=== PATIENT | female | born 1985 | race Native Hawaiian/Other Pacific Islander ===

== ENCOUNTER 2017-04-15 02:17 | Emergency (ER) | payer OTHER ==
[~2017-04-15] VITALS: Ht 152.4 cm; Wt 54.0 kg
[~2017-04-15 02:17] MED LIST: BCPILLS PO; HYDRTAB53 PO
[2017-04-15 02:19] VITALS: TEMP 36.5; Ht 152.4 cm; Wt 54.0 kg
[2017-04-15 03:27] LABS: CALCIUM 8.3 mg/dl (8.5-10.1); CREATININE 0.63 mg/dl (0.60-1.20); POTASSIUM 3.1 mmol/L (3.5-5.1)
[2017-04-15] MEDS ORDERED: LIDOCAINE/EPINEPH/TETRACAINE 1 EA SYR EXT STA (03:42)
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
[2017-04-15 05:35] VITALS: BP 10/69; PULSE 98; O2SAT 97
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
== END 2017-04-15 05:35 | disposition home or self-care (01) ==
LOC: EDBD 02:17 → C.EDB 02:19
DX: S01.81XA Laceration without foreign body of other part of head, initial encounter (principal); W22.8XXA Striking against or struck by other objects, initial encounter; F10.929 Alcohol use, unspecified with intoxication, unspecified; Y90.7 Blood alcohol level of 200-239 mg/100 ml; E87.6 Hypokalemia

== ENCOUNTER 2017-04-19 15:53 | Emergency (ER) | payer OTHER ==
[~2017-04-19] VITALS: Ht 152.4 cm; Wt 53.5 kg
[2017-04-19 15:56] VITALS: Ht 152.4 cm; Wt 53.5 kg
--- NOTE | 2017-04-19 16:08 | EMERGENCY ROOM VISIT NOTE ---
ED Visit Note First contact with patient: 15:59 CHIEF COMPLAINT: Suture removal HPI: This 31-year-old female patient returns to the ED today for removal of sutures that were placed for days ago into her face. There has been no swelling , redness, or drainage from the wound. The patient feels like the laceration is healing well. REVIEW OF SYSTEMS: 6 system review was performed and was negative unless stated otherwise in history of present illness. PMH: The patient is healthy; there is no significant medical or surgical history. SOCIAL HISTORY: Patient lives with her . The patient admits to alcohol use. PHYSICAL EXAM: Vital Signs: Were reviewed reviewed Nurse's notes. GENERAL: 31- year-old female appears in no acute distress. MENTAL STATUS: Alert and oriented 3. There are 2 sutured wound above the left eye with no signs of infection. There is no erythema, swelling, or tenderness. EMERGENCY DEPARTMENT COURSE: The 2 sutures were removed without any difficulty and there was no separation of the wound edges. DIAGNOSIS: Healing facial laceration and suture removal DISCHARGE INSTRUCTIONS AND TREATMENT: Wash any remaining crusts off of the wound today and resume your normal activities. Current/Historical Medications No Active Prescriptions or Reported Meds Allergies Coded Allergies: No Known Allergies (Unverified , 04/15/17) Vital Signs Date Time Temp Pulse Resp B/P (MAP) Pulse Ox O2 Delivery O2 Flow Rate FiO2 04/19/17 15:56 36.7 76 17 119/70 96 Room Air Departure Information Prescriptions No Active Prescriptions or Reported Meds Referrals No Doctor, Assigned (PCP) Patient Instructions [facility]
[2017-04-19 16:16] VITALS: BP 119/70; PULSE 76; TEMP 36.7; O2SAT 96
== END 2017-04-19 16:16 | disposition home or self-care (01) ==
LOC: C.EDB 15:54 → C.EDD 16:16
DX: S01.81XD Laceration without foreign body of other part of head, subsequent encounter (principal); W22.8XXD Striking against or struck by other objects, subsequent encounter; Z48.02 Encounter for removal of sutures

== ENCOUNTER 2021-11-02 07:57 | Inpatient (IN) ==
[2021-11-02] MEDS: LACTATED RINGER'S 1,000 ML IV PRN ×3 (09:00→17:41)
[2021-11-02] MEDS ORDERED: OXYTOCIN 30 UNITS/500 ML BAG IV PRN ×2 (09:05→23:11)
[2021-11-02] MEDS ORDERED: LIDOCAINE 1% LOCAL 20 ML VIAL INFIL PRN (09:05)
[2021-11-02] MEDS ORDERED: PENICILLIN G POTASSIUM 6 MU in DEXTROSE 5% 250 ML IV ONE (09:30)
[2021-11-02 09:57] LABS: Hematocrit (blood only) 39.6 % (34.1-44.9); Hemoglobin 13.9 g/dl (12.0-16.0); Mean Corpuscular Hemoglobin 32.9 pg (25.0-34.0); Mean Corpuscular Hgb Conc 35.1 g/dL (32.0-36.0); Mean Corpuscular Volume 93.6 fL (80.0-100.0); Mean Platelet Volume 11.2 fL (9.4-12.3); Platelet Count 201 K/uL (130-400); RDW Coefficient of Variation 12.4 % (11.5-14.5); RDW Standard Deviation 42.7 fL (36.4-46.3); Red Blood Count 4.23 M/uL (3.93-5.22); White Blood Count 8.52 K/ul (4.8-10.8)
--- NOTE | 2021-11-02 10:03 | History & Physical Report ---
Date of Service November 02, 2021 Assessment & Plan Admission and Anticipated Discharge Date Admission Date: November 02, 2021 History of Present Illness Chief Complaint: rupture of membranes Primary Care Provider: NO PCP 36 F P1001 at 38.4 with SROM blood tinged fluid at around 0730 this AM. GBS is positive. Allergies Allergy/AdvReac Type Severity Reaction Status Date / Time No Known Allergies Allergy Unverified 04/15/17 02:31 Patient History Surgical History Hx of cholecystectomy Social History Smoking Status: Never smoker Second Hand Exposure: No; Do You Dip or Chew Tobacco: No; Hx Alcohol Use: No Hx Substance Use: No Preferred Language: [place] Communication Ability: Effective Client Experience Consultant Required: No Beliefs That Will Affect Care: None marital status: Current Living Situation: Spouse Other Information That Helps Us Care for You: No Feels Safe at Home: Yes Safety Concerns: Feels Safe At This Time Assistive Devices: Glasses OB History x1 at 35.4 at [facility] [place] GDM diet controlled [employer] History small anterior uterine fibroid 2.0 x 1.7 x 2.0 cm. Review of Systems All systems reviewed & are unremarkable except as noted in HPI & below Physical Exam Constitutional: WD/WN, vitals as above Respiratory: normal respiratory effort, lungs clear to auscultation Cardiovascular: RRR, no murmur, no edema Musculoskeletal: Extremities: extremities normal to inspection Skin: no rashes, warm and dry Neurologic: patellar DTR's 2+ bilat, sensation intact Psychiatric: A+Ox3, euthymic affect Genitourinary: normal external appearance OB Exam Abdomen: + fundal height and + vertex Manual OB Exam: + cervical dilation fingertip, + cervical effacement 50%, + station high and + amniotic fluid clear and bloody OB Exam Monitor Tracing: + external FHT monitor used, + external uterine monitor used, + category I and + normal FHT variability EFW 8 lbs Results & Data ([facility]) Vital Signs (Past 12 Hours) Vital Signs Temp Pulse Resp BP 11/02/21 08:56 78 123/83 11/02/21 08:52 36.5 C 78 18 123/83 Monitoring External Monitor Cat 1
[2021-11-02] MEDS: miSOPROStoL 50 MCG TAB PO SCH ×3 (10:34→18:35)
[2021-11-02] MEDS: PENICILLIN G POTASSIUM 3 MU in DEXTROSE 5% 100 ML IV PRN ×3 (14:14→22:25)
[2021-11-02] MEDS ORDERED: SODIUM CHLORIDE 0.9% INJ 10 ML VIAL ONE (15:23)
[2021-11-02] MEDS ORDERED: fentaNYL citrate 100 MCG/2 ML VIAL ONE (15:23)
[2021-11-02] MEDS ORDERED: BUPIVACAINE 0.25% 30 ML VIAL ONE (15:23)
[2021-11-02] MEDS ORDERED: ePHEDrine sulfate 50 MG/ML AMP ONE (15:23)
[2021-11-02] MEDS ORDERED: LIDOCAINE 2%/EPINEPHRINE 1:200,000 20 ML SDV ONE (15:23)
[2021-11-02] MEDS ORDERED: fentaNYL 2MCG/ML ROPIVACAINE 1.25MG/ML 100 ML BAG EPI ONE (15:24)
[2021-11-02] MEDS ORDERED: diphenhydrAMINE 50 MG/ML VIAL IV PRN (15:32)
[2021-11-02] MEDS ORDERED: NALOXONE HCL 0.4 MG/1 ML VIAL/CARP IV PRN (15:32)
[2021-11-02] MEDS ORDERED: ePHEDrine sulfate 50 MG/ML AMP IV PRN (15:32)
[2021-11-02] MEDS ORDERED: ONDANSETRON INJ 2 MG/ML 2 ML VIAL IV PRN (15:32)
[2021-11-02] MEDS ORDERED: NALOXONE HCL 1 MG in SODIUM CHLORIDE 0.9% 1000ML 1,000 ML IV PRN (15:32)
[2021-11-02] MEDS ORDERED: NALBUPHINE HCL INJ 10 MG/ML AMP IV PRN (15:32)
[2021-11-02] MEDS ORDERED: fentaNYL 2MCG/ML ROPIVACAINE 1.25MG/ML 100 ML BAG EPI PRN (15:32)
--- NOTE | 2021-11-02 15:34 | Anesthesiology Consultation ---
Date of Service November 02, 2021 Assessment & Plan (1) Encounter for pre-operative examination: Chart Review Chart Review: Patient NOT seen in Pre Admission Testing and Acceptable Risk for Labor Epidural Consults Requested none History Height/Weight Height: 5 ft 1 in Weight: 70.307 kg Allergies Allergy/AdvReac Type Severity Reaction Status Date / Time No Known Allergies Allergy Unverified 04/15/17 02:31 Medications Active Medications Generic Name Dose Route Start Last Admin Trade Name Freq PRN Reason Stop Dose Admin Lactated Ringer's 1,000 mls @ 125 mls/hr 11/02/21 09:05 11/02/21 12:38 Lr IV 11/04/21 09:04 125 mls/hr .Q8H PRN Administration L&D Protocol Protocol Penicillin G Potassium 3 mu/ 106 mls @ 100 mls/hr 11/02/21 12:05 11/02/21 14:14 Dextrose IV 11/12/21 12:04 100 mls/hr Q4H PRN Administration GBS(+) Until Delivery Misoprostol 50 mcg 11/02/21 09:55 11/02/21 10:34 Misoprostol 50 Mcg Tab PO 12/02/21 09:54 50 mcg Q4H BEST Administration Exercise / Class Metabolic Activity II 4-5 Yardwork/Stairs/Walk up hill Past Surgical History Surgical History Hx of cholecystectomy Past Anesthesia History No Hx of Anesthesia Complications and No Family Hx of Anesthesia Complications History of PONV No Hx of PONV and No Hx of Motion Sickness Social History Smoking Status: Never smoker Do You Dip or Chew Tobacco: No Hx Alcohol Use: No Hx Substance Use: No Physical Exam Vital Signs Last Vital Signs Temp 36.5 C 11/02/21 15:31 Pulse 73 11/02/21 15:53 Resp 18 11/02/21 15:31 BP 175/90 H 11/02/21 15:53 Pulse Ox 98 11/02/21 15:53 Testing Laboratory Results 11/02/21 09:18
--- NOTE | 2021-11-02 16:30 | Labor Progress Brief Note ---
Date of Service November 02, 2021 Assessment & Plan Admission and Anticipated Discharge Date Admission Date: November 02, 2021 Physical Exam Genitourinary: Manual OB Exam: + cervical dilation 6 cm and 7 cm, + cervical effacement 90% and + station 0 OB Exam Monitor Tracing: + external FHT monitor used, + external uterine monitor used, + category II and + normal FHT variability Results & Data ([facility]) Vital Signs (Past 12 Hours) Vital Signs Temp Pulse Resp BP Pulse Ox 11/02/21 16:27 75 116/67 11/02/21 16:25 79 94/55 L 11/02/21 16:23 70 95 11/02/21 16:18 68 96 11/02/21 16:15 80 101/66 11/02/21 16:13 91 H 97 11/02/21 16:08 89 97 11/02/21 16:07 98 H 108/78 11/02/21 16:04 102 H 103/70 11/02/21 16:03 87 97 11/02/21 15:58 85 97 11/02/21 15:57 82 119/78 11/02/21 15:53 98 11/02/21 15:53 73 11/02/21 15:53 74 175/90 H 11/02/21 15:48 89 97 11/02/21 15:31 18 11/02/21 15:31 36.5 C 18 11/02/21 15:43 93 H 99 11/02/21 15:38 79 99 11/02/21 15:33 86 98 11/02/21 15:32 82 124/86 11/02/21 13:45 59 L 11/02/21 13:45 124/71 11/02/21 13:45 36.5 C 59 L 20 124/71 11/02/21 11:33 20 11/02/21 11:33 36.7 C 68 20 138/84 11/02/21 11:34 68 138/84 11/02/21 08:56 78 123/83 11/02/21 08:52 36.5 C 78 18 123/83
--- NOTE | 2021-11-02 19:38 | Labor Progress Brief Note ---
Date of Service November 02, 2021 Assessment & Plan Admission and Anticipated Discharge Date Admission Date: November 02, 2021 Physical Exam Genitourinary: Manual OB Exam: + cervical dilation 9 cm and 10 cm, + cervical effacement 100% and + station 0 small anterior rim Results & Data ([facility]) Vital Signs (Past 12 Hours) Vital Signs Temp Pulse Resp BP Pulse Ox 11/02/21 15:10 36.5 C 18 11/02/21 19:33 90 130/77 97 11/02/21 19:28 92 H 98 11/02/21 19:23 80 97 11/02/21 19:18 79 126/77 97 11/02/21 19:13 79 98 11/02/21 19:09 16 11/02/21 19:09 36.5 C 16 11/02/21 19:08 89 97 11/02/21 19:03 98 11/02/21 19:03 98 H 11/02/21 19:03 93 H 124/87 11/02/21 18:58 79 97 11/02/21 18:53 101 H 99 11/02/21 18:48 95 H 97 11/02/21 18:49 86 129/81 11/02/21 18:43 79 98 11/02/21 18:35 18 11/02/21 18:35 36.9 C 18 11/02/21 18:38 83 98 11/02/21 18:33 72 96 11/02/21 18:34 77 147/77 H 11/02/21 18:28 75 96 11/02/21 18:23 80 98 11/02/21 18:18 77 98 11/02/21 18:17 83 138/85 11/02/21 18:13 74 98 11/02/21 18:08 81 98 11/02/21 18:03 72 95 11/02/21 18:04 70 144/82 H 11/02/21 17:58 70 98 11/02/21 17:53 69 97 11/02/21 17:51 71 94 11/02/21 17:48 74 117/72 97 11/02/21 17:40 16 11/02/21 17:40 36.8 C 16 11/02/21 17:43 72 97 11/02/21 17:38 80 97 11/02/21 17:33 80 97 11/02/21 17:32 109 H 143/89 H 11/02/21 17:31 107 H 92 11/02/21 17:28 71 96 11/02/21 17:25 69 94 11/02/21 17:23 72 97 11/02/21 17:18 97 11/02/21 17:18 62 11/02/21 17:18 68 136/81 11/02/21 17:14 69 93 11/02/21 17:13 65 96 11/02/21 17:08 67 94 11/02/21 17:03 98 11/02/21 17:03 65 11/02/21 17:03 61 136/78 11/02/21 17:01 69 94 11/02/21 16:58 64 97 11/02/21 16:56 70 93 11/02/21 16:30 16 11/02/21 16:30 16 11/02/21 16:50 18 11/02/21 16:50 36.9 C 18 11/02/21 16:53 68 97 11/02/21 16:48 67 97 11/02/21 16:47 68 106/81 11/02/21 16:45 72 95/77 L 11/02/21 16:43 70 98 11/02/21 16:42 65 97/72 L 11/02/21 16:39 74 103/64 11/02/21 16:38 72 98 11/02/21 16:37 69 109/68 11/02/21 16:35 155 H 115/72 11/02/21 16:33 63 109/67 99 11/02/21 16:31 74 112/63 11/02/21 16:28 70 99 11/02/21 16:27 75 116/67 11/02/21 16:25 79 94/55 L 11/02/21 16:23 70 95 11/02/21 16:18 68 96 11/02/21 16:15 80 101/66 11/02/21 16:13 91 H 97 11/02/21 16:08 89 97 11/02/21 16:07 98 H 108/78 11/02/21 16:04 102 H 103/70 11/02/21 16:03 87 97 11/02/21 15:58 85 97 11/02/21 15:57 82 119/78 11/02/21 15:53 98 11/02/21 15:53 73 11/02/21 15:53 74 175/90 H 11/02/21 15:48 89 97 11/02/21 15:31 18 11/02/21 15:31 36.5 C 18 11/02/21 15:43 93 H 99 11/02/21 15:38 79 99 11/02/21 15:33 86 98 11/02/21 15:32 82 124/86 11/02/21 13:45 59 L 11/02/21 13:45 124/71 11/02/21 13:45 36.5 C 59 L 20 124/71 11/02/21 11:33 20 11/02/21 11:33 36.7 C 68 20 138/84 11/02/21 11:34 68 138/84 11/02/21 08:56 78 123/83 11/02/21 08:52 36.5 C 78 18 123/83
[2021-11-02] MEDS ORDERED: ERYTHROMYCIN OP OINT 1 GM PKT ONE (20:06)
[2021-11-02] MEDS ORDERED: OXYTOCIN 30 UNITS/500 ML BAG IV SCH (22:30)
--- NOTE | 2021-11-02 23:04 | Delivery Summary ---
Vaginal Delivery Summary Date of Service November 02, 2021 Vaginal Delivery Summary Delivery Note live male JULIA with delayed cord clamping and Apgars 8/9 weight pending. Cord blood obtained followed by spontaneous delivery of intact placenta. No tears. EBL 200 ml. Final sponge and instrument count are correct. Mom and baby stable.
[2021-11-02] MEDS ORDERED: HYDROCORTISONE ACETATE 25 MG SUPP PR PRN (23:11)
[2021-11-02] MEDS ORDERED: DIPHTHERIA/TETANUS/PERTUSSIS 0.5 ML SYR/VIAL IM ONE (23:11)
[2021-11-02] MEDS ORDERED: bisacodyL 10 MG SUPP PR PRN (23:11)
[2021-11-02] MEDS ORDERED: BENZOCAINE 20% AER SPR 82.5 GM CAN EXT PRN (23:11)
[2021-11-02] MEDS ORDERED: ACETAMINOPHEN 325 MG TAB PO PRN (23:11)
[2021-11-03] MEDS: IBUPROFEN 600 MG TAB PO PRN ×2 (03:23→19:57)
[2021-11-03 08:12] LABS: Hemoglobin 12.2 g/dl (12.0-16.0); Mean Corpuscular Hemoglobin 32.4 pg (25.0-34.0); Mean Corpuscular Hgb Conc 34.9 g/dL (32.0-36.0); Mean Corpuscular Volume 93.1 fL (80.0-100.0); Mean Platelet Volume 10.9 fL (9.4-12.3); Platelet Count 169 K/uL (130-400); RDW Coefficient of Variation 12.4 % (11.5-14.5); RDW Standard Deviation 42.2 fL (36.4-46.3); Red Blood Count 3.76 M/uL (3.93-5.22); White Blood Count 14.04 K/ul (4.8-10.8)
--- NOTE | 2021-11-03 09:21 | Obstetrical Progress Note ---
Date of Service November 03, 2021 Assessment & Plan Admission and Anticipated Discharge Date Admission Date: November 02, 2021 Subjective Patient is seen and examined. She feels well, no complaints. Ambulating without dizziness Voiding without difficulty Tolerating regular diet with out N&V Bleeding is minimal No fever/ chills/ CP/ SOB/ N&V/ Leg pain Breast feeding without problems Vital Signs Temp Pulse Pulse Resp BP BP Pulse Ox 11/03/21 07:10 36.6 C 70 18 125/82 11/03/21 03:35 36.5 C 69 18 142/88 H 11/03/21 01:05 36.7 C 76 18 150/86 H 11/02/21 23:02 20 11/03/21 00:51 36.7 C 76 18 150/88 H 11/03/21 00:20 16 11/02/21 23:48 16 11/02/21 23:33 18 11/02/21 23:17 18 11/02/21 22:51 20 11/03/21 00:32 75 133/75 11/03/21 00:20 71 135/73 11/03/21 00:17 77 149/74 H 11/03/21 00:02 63 144/67 H 11/02/21 23:48 72 142/86 H 11/02/21 23:33 85 146/85 H 11/02/21 23:29 72 98 11/02/21 23:24 81 96 11/02/21 23:19 89 98 11/02/21 23:17 89 118/70 11/02/21 23:14 95 H 97 11/02/21 23:09 93 H 98 11/02/21 23:04 92 H 99 11/02/21 23:02 90 119/75 11/02/21 22:59 94 H 98 11/02/21 22:54 97 H 97 11/02/21 22:51 98 H 117/79 11/02/21 22:49 95 H 97 11/02/21 22:44 92 H 95 11/02/21 22:45 89 94 11/02/21 22:39 91 H 95 11/02/21 22:36 92 H 94 11/02/21 22:34 92 H 97 11/02/21 22:29 85 96 11/02/21 22:27 95 H 91 11/02/21 22:24 101 H 96 11/02/21 22:19 90 96 11/02/21 22:18 100 H 131/86 11/02/21 22:14 89 96 11/02/21 22:13 98 H 94 11/02/21 22:09 96 H 98 11/02/21 22:07 92 H 94 11/02/21 22:04 103 H 96 11/02/21 21:59 91 H 97 11/02/21 21:58 100 H 94 11/02/21 21:54 117 H 97 11/02/21 21:52 98 H 94 11/02/21 21:49 95 11/02/21 21:49 90 11/02/21 21:49 85 132/69 11/02/21 21:44 99 H 95 11/02/21 21:39 103 H 97 11/02/21 21:35 36.6 C 11/02/21 21:34 95 11/02/21 21:34 93 H 11/02/21 21:34 118 H 93 11/02/21 21:33 100 H 154/63 H 11/02/21 21:29 115 H 97 11/02/21 21:24 99 H 95 O2 Del Method 11/03/21 07:10 Room Air 11/03/21 03:35 11/03/21 01:05 11/02/21 23:02 11/03/21 00:51 11/03/21 00:20 11/02/21 23:48 11/02/21 23:33 11/02/21 23:17 11/02/21 22:51 11/03/21 00:32 11/03/21 00:20 11/03/21 00:17 11/03/21 00:02 11/02/21 23:48 11/02/21 23:33 11/02/21 23:29 11/02/21 23:24 11/02/21 23:19 11/02/21 23:17 11/02/21 23:14 11/02/21 23:09 11/02/21 23:04 11/02/21 23:02 11/02/21 22:59 11/02/21 22:54 11/02/21 22:51 11/02/21 22:49 11/02/21 22:44 11/02/21 22:45 11/02/21 22:39 11/02/21 22:36 11/02/21 22:34 11/02/21 22:29 11/02/21 22:27 11/02/21 22:24 11/02/21 22:19 11/02/21 22:18 11/02/21 22:14 11/02/21 22:13 11/02/21 22:09 11/02/21 22:07 11/02/21 22:04 11/02/21 21:59 11/02/21 21:58 11/02/21 21:54 11/02/21 21:52 11/02/21 21:49 11/02/21 21:49 11/02/21 21:49 11/02/21 21:44 11/02/21 21:39 11/02/21 21:35 11/02/21 21:34 11/02/21 21:34 11/02/21 21:34 11/02/21 21:33 11/02/21 21:29 11/02/21 21:24 Lab Results 11/02/21 11/02/21 11/02/21 Range/Units 09:18 12:32 16:32 WBC 8.52 (4.8-10.8) K/ul RBC 4.23 (3.93-5.22) M/uL Hgb 13.9 (12.0-16.0) g/dl Hct 39.6 (34.1-44.9) % MCV 93.6 (80.0-100.0) fL MCH 32.9 (25.0-34.0) pg MCHC 35.1 (32.0-36.0) g/dL RDW Std Deviation 42.7 (36.4-46.3) fL RDW Coeff of Kaya 12.4 (11.5-14.5) % Plt Count 201 (130-400) K/uL MPV 11.2 (9.4-12.3) fL POC Glucose 106 H (70-99) mg/dl SARS-CoV-2, RNA, NAAT NEGATIVE (NEGATIVE) 11/03/21 Range/Units 08:00 WBC 14.04 H (4.8-10.8) K/ul RBC 3.76 L (3.93-5.22) M/uL Hgb 12.2 (12.0-16.0) g/dl Hct 35.0 (34.1-44.9) % MCV 93.1 (80.0-100.0) fL MCH 32.4 (25.0-34.0) pg MCHC 34.9 (32.0-36.0) g/dL RDW Std Deviation 42.2 (36.4-46.3) fL RDW Coeff of Kaya 12.4 (11.5-14.5) % Plt Count 169 (130-400) K/uL MPV 10.9 (9.4-12.3) fL POC Glucose (70-99) mg/dl SARS-CoV-2, RNA, NAAT (NEGATIVE) PE: General: Alert, orientedx3, NAD Abd: soft, NT, fundus firm, below Umbilicus Perineum intact, Lochia rubra minimal Ext; NT, no edema AP: 36 yo s/p , ppd# 1 VSS Afebrile doing well Continue routine care All questions were answered D/C home tomorrow Results & Data ([facility]) Vital Signs (Past 12 Hours) Vital Signs Temp Pulse Pulse Resp BP BP Pulse Ox 11/03/21 07:10 36.6 C 70 18 125/82 11/03/21 03:35 36.5 C 69 18 142/88 H 11/03/21 01:05 36.7 C 76 18 150/86 H 11/02/21 23:02 20 11/03/21 00:51 36.7 C 76 18 150/88 H 11/03/21 00:20 16 11/02/21 23:48 16 11/02/21 23:33 18 11/02/21 23:17 18 11/02/21 22:51 20 11/03/21 00:32 75 133/75 11/03/21 00:20 71 135/73 11/03/21 00:17 77 149/74 H 11/03/21 00:02 63 144/67 H 11/02/21 23:48 72 142/86 H 11/02/21 23:33 85 146/85 H 11/02/21 23:29 72 98 11/02/21 23:24 81 96 11/02/21 23:19 89 98 11/02/21 23:17 89 118/70 11/02/21 23:14 95 H 97 11/02/21 23:09 93 H 98 11/02/21 23:04 92 H 99 11/02/21 23:02 90 119/75 11/02/21 22:59 94 H 98 11/02/21 22:54 97 H 97 11/02/21 22:51 98 H 117/79 11/02/21 22:49 95 H 97 11/02/21 22:44 92 H 95 11/02/21 22:45 89 94 11/02/21 22:39 91 H 95 11/02/21 22:36 92 H 94 11/02/21 22:34 92 H 97 11/02/21 22:29 85 96 11/02/21 22:27 95 H 91 11/02/21 22:24 101 H 96 11/02/21 22:19 90 96 11/02/21 22:18 100 H 131/86 11/02/21 22:14 89 96 11/02/21 22:13 98 H 94 11/02/21 22:09 96 H 98 11/02/21 22:07 92 H 94 11/02/21 22:04 103 H 96 11/02/21 21:59 91 H 97 11/02/21 21:58 100 H 94 11/02/21 21:54 117 H 97 11/02/21 21:52 98 H 94 11/02/21 21:49 95 11/02/21 21:49 90 11/02/21 21:49 85 132/69 11/02/21 21:44 99 H 95 11/02/21 21:39 103 H 97 11/02/21 21:35 36.6 C 11/02/21 21:34 95 11/02/21 21:34 93 H 11/02/21 21:34 118 H 93 11/02/21 21:33 100 H 154/63 H 11/02/21 21:29 115 H 97 11/02/21 21:24 99 H 95 O2 Del Method 11/03/21 07:10 Room Air 11/03/21 03:35 11/03/21 01:05 11/02/21 23:02 11/03/21 00:51 11/03/21 00:20 11/02/21 23:48 11/02/21 23:33 08/24/22 23:17 11/02/21 22:51 11/03/21 00:32 11/03/21 00:20 11/03/21 00:17 11/03/21 00:02 11/02/21 23:48 11/02/21 23:33 11/02/21 23:29 11/02/21 23:24 11/02/21 23:19 11/02/21 23:17 11/02/21 23:14 11/02/21 23:09 11/02/21 23:04 11/02/21 23:02 11/02/21 22:59 11/02/21 22:54 11/02/21 22:51 11/02/21 22:49 11/02/21 22:44 11/02/21 22:45 11/02/21 22:39 11/02/21 22:36 11/02/21 22:34 11/02/21 22:29 11/02/21 22:27 11/02/21 22:24 11/02/21 22:19 11/02/21 22:18 11/02/21 22:14 11/02/21 22:13 11/02/21 22:09 11/02/21 22:07 11/02/21 22:04 11/02/21 21:59 11/02/21 21:58 11/02/21 21:54 11/02/21 21:52 11/02/21 21:49 11/02/21 21:49 11/02/21 21:49 11/02/21 21:44 11/02/21 21:39 11/02/21 21:35 11/02/21 21:34 11/02/21 21:34 11/02/21 21:34 11/02/21 21:33 11/02/21 21:29 11/02/21 21:24
--- NOTE | 2021-11-03 09:22 | Anesthesia Procedure Note ---
Date of Service November 03, 2021 Anesthesia Post Epidural Note Vital Signs Vital Signs: Temp Pulse Resp BP Pulse Ox O2 Del Method 36.6 C 70 18 125/82 98 11/03/21 07:10 11/03/21 07:10 11/03/21 07:10 11/03/21 07:10 11/02/21 23:29 11/03/21 07:10 Pain Intensity Lower Abdomen: Pain Intensity: 6 Notes Mental Status: alert / awake / arousable and participated in evaluation Nausea / Vomiting: adequately controlled Pain: adequately controlled Airway Patency, RR, SpO2: stable & adequate BP & HR: stable & adequate Hydration State: stable & adequate Neuraxial Anesthesia: was administered and sensory block is resolving Anesthetic Complications: no major complications apparent and Pt Satisfied with anesthetic care Epidural: Removed without complications and With tip intact
[2021-11-03] MEDS: DOCUSATE SODIUM 100 MG CAP PO SCH (19:57)
[2021-11-03] MEDS ORDERED: bisacodyL 5 MG TABEC PO SCH (20:00)
[2021-11-04 06:31] LABS: Basophils # (auto) 0.05 K/uL (0-0.2); Basophils % (auto) 0.4 %; Eosinophils # (auto) 0.32 K/uL (0-0.50); Eosinophils % (auto) 2.6 %; Hematocrit (blood only) 34.8 % (34.1-44.9); Hemoglobin 11.9 g/dl (12.0-16.0); Immature Granulocytes # (auto) 0.12 K/uL (0.00-0.02); Lymphocytes # (auto) 2.58 K/uL (1.2-3.4); Lymphocytes % (auto) 21.3 %; Mean Corpuscular Hemoglobin 32.5 pg (25.0-34.0); Mean Corpuscular Hgb Conc 34.2 g/dL (32.0-36.0); Mean Corpuscular Volume 95.1 fL (80.0-100.0); Mean Platelet Volume 10.8 fL (9.4-12.3); Monocytes # (auto) 0.84 K/uL (0.24-0.82); Monocytes % (auto) 6.9 %; Neutrophils # (auto) 8.23 K/uL (1.4-6.5); Neutrophils % (auto) 67.8 %; Platelet Count 163 K/uL (130-400); RDW Coefficient of Variation 12.4 % (11.5-14.5); RDW Standard Deviation 43.1 fL (36.4-46.3); Red Blood Count 3.66 M/uL (3.93-5.22); White Blood Count 12.14 K/ul (4.8-10.8)
[2021-11-04] MEDS: FERROUS SULFATE 325 MG TAB PO SCH ×2 (08:30→08:50)
[2021-11-04] MEDS: DOCUSATE SODIUM 100 MG CAP PO SCH ×2 (08:30→08:50)
[2021-11-04] MEDS: PRENATAL VITAMIN 1 TAB PO SCH ×2 (08:30→08:50)
--- NOTE | 2021-11-04 09:06 | Obstetrical Progress Note ---
Date of Service November 04, 2021 Subjective Ambulation: ambulating normally Voiding: no voiding problems Passing Gas:: Yes Diet Tolerance:: regular diet Lochia:: Small Feeding Type:: breast feeding Current Pain Level(1-10): 0 doing well Physical Exam Constitutional WD/WN, vitals as above Gastrointestinal (Abdomen) Inspection/Auscultation: abdomen normal to inspection fundus firm. fundus below U Musculoskeletal Extremities: extremities normal to inspection no edema. neg Homna's Skin no rashes, warm and dry Neurologic patellar DTR's 2+ bilat, sensation intact Results & Data ([facility]) Vital Signs (Past 12 Hours) Vital Signs Temp Pulse Resp BP Pulse Ox O2 Del Method 11/04/21 08:01 36.4 C L 51 L 18 137/83 96 Room Air 11/03/21 23:30 36.7 C 59 L 16 127/80 Room Air Laboratory Results Laboratory Results - last 72 hr 11/02/21 11/02/21 11/02/21 09:18 12:32 16:32 WBC 8.52 RBC 4.23 Hgb 13.9 Hct 39.6 MCV 93.6 MCH 32.9 MCHC 35.1 RDW Std Deviation 42.7 RDW Coeff of Kaya 12.4 Plt Count 201 MPV 11.2 Immature Gran % (Auto) Neut % (Auto) Lymph % (Auto) Cavalier % (Auto) Eos % (Auto) Baso % (Auto) Neut # (Auto) Lymph # (Auto) Cavalier # (Auto) Eos # (Auto) Baso # (Auto) Immature Gran # (Auto) POC Glucose 106 H SARS-CoV-2, RNA, NAAT NEGATIVE 11/03/21 11/04/21 08:00 06:21 WBC 14.04 H 12.14 H RBC 3.76 L 3.66 L Hgb 12.2 11.9 L Hct 35.0 34.8 MCV 93.1 95.1 MCH 32.4 32.5 MCHC 34.9 34.2 RDW Std Deviation 42.2 43.1 RDW Coeff of Kaya 12.4 12.4 Plt Count 169 163 MPV 10.9 10.8 Immature Gran % (Auto) 1.0 Neut % (Auto) 67.8 Lymph % (Auto) 21.3 Cavalier % (Auto) 6.9 Eos % (Auto) 2.6 Baso % (Auto) 0.4 Neut # (Auto) 8.23 H Lymph # (Auto) 2.58 Cavalier # (Auto) 0.84 H Eos # (Auto) 0.32 Baso # (Auto) 0.05 Immature Gran # (Auto) 0.12 H POC Glucose SARS-CoV-2, RNA, NAAT
== END 2021-11-04 14:05 | disposition home or self-care (01) | DRG 807 ==
LOC: OPB 07:57 → 4S1 07:59 → 4E2 11-03 01:13